=== PATIENT | male | born 1985 | race Caucasian/White ===

== ENCOUNTER 2017-04-20 16:40 | Emergency (ER) | payer OTHER ==
[~2017-04-20] VITALS: Ht 165.1 cm; Wt 119.4 kg
[~2017-04-20 16:40] MED LIST: OMEPRAZOLE40 M1 PO; PRILOSEC20 MG PO
[2017-04-20 17:51] LABS: HEMATOCRIT 41.3 % (38.0-50.0); HEMOGLOBIN 14.6 G/DL (12.5-16.6); MCH 31.7 PG (29.0-34.0); MCHC 35.4 G/DL (30.0-36.0); MCV 89.8 FL (86-99); PLATELET COUNT 323 K/uL (156-360); RBC DIS.WIDTH-CV 11.6 % (11.8-14.6); RBC DIS.WIDTH-SD 37.8 % (39-53); WHITE BLOOD COUNT 10.6 K/uL (4.1-10.2)
[2017-04-20 18:06] LABS: ALBUMIN 4.7 g/dL (3.2-4.8); CHLORIDE 100 mEq/L (99-109); POTASSIUM 3.9 mEq/L (3.7-5.4); SODIUM 138 mEq/L (136-147)
[2017-04-20 18:08] LABS: GLUCOSE 98 mg/dL (70-99); TOTAL PROTEIN 8.4 g/dL (6.4-8.3)
[2017-04-20 18:10] LABS: TOTAL BILIRUBIN 0.9 mg/dL (0.0-1.0)
[2017-04-20 18:12] LABS: ALKALINE PHOSPHATASE 74 IU/L (3-129); CREATININE 0.9 mg/dL (0.6-1.3); GFR ESTIMATE (CALCULATED) > 59 mL/min/ (58.99-99999)
[2017-04-20 18:13] LABS: UREA NITROGEN (BUN) 11 mg/dL (9-23)
[2017-04-20 18:14] LABS: AST (GOT) 20 IU/L (2-34)
[2017-04-20 18:15] LABS: ALT (GPT) 22 IU/L (3-49); LIPASE 19 U/L (1.0-51.0)
[2017-04-20 19:52] LABS: APPEARANCE CLEAR ((CLEAR)); BILIRUBIN NEGATIVE; BLOOD SMALL; COLOR YELLOW ((YELLOW)); GLUCOSE (STRIP) NEGATIVE; KETONES 20; LEUKOCYTES NEGATIVE; NITRITE NEGATIVE; PROTEIN (STRIP) 100; SPECIFIC GRAVITY 1.025 (1.000-1.030)
[2017-04-20 19:55] LABS: BACTERIA NONE SEEN /HPF; EPITHELIAL CELLS NONE SEEN /HPF; MUCUS 2+ /LPF; RED BLOOD CELLS 0-5 /HPF (0-5); UCUL ADDED? NO; WHITE BLOOD CELLS 0-5 /HPF (0-5)
[2017-04-20] MEDS ORDERED: ZOFRAN4 MG PO (20:45)
[2017-04-20] MEDS ORDERED: PERCOCET 5/31 TABLET PO (20:45)
[2017-04-20 22:18] VITALS: BP 147/105
== END 2017-04-20 22:20 | disposition home or self-care (01) ==
LOC: EME 16:40
PROVIDERS: Physician Assistant
DX: K85.90 Acute pancreatitis without necrosis or infection, unspecified (principal); K80.20 Calculus of gallbladder without cholecystitis without obstruction; R31.9 Hematuria, unspecified; Z87.891 Personal history of nicotine dependence
CPT/HCPCS: 74177; 80053; 81003; 83690; 85027; 99281; 99285; J2270; J2405; J3010

== ENCOUNTER 2017-04-27 09:54 | Day surgery (SDC) | payer OTHER ==
[~2017-04-27] VITALS: Ht 170.2 cm; Wt 117.0 kg
[~2017-04-27 09:54] MED LIST changes: +PERCOCET 5/31 TABLET PO; +ZOFRAN4 MG PO
[2017-04-27 10:46] VITALS: BP 147/98
[2017-04-27] MEDS ORDERED: OXYCODONE-ACET1 EACH PO (14:29)
[2017-04-27 16:25] VITALS: BP 119/79
[2017-04-27 17:15] VITALS: BP 133/75
[2017-04-27 18:15] VITALS: BP 137/85
== END 2017-04-27 18:25 | disposition home or self-care (01) ==
LOC: SDC 09:54
DX: K80.10 Calculus of gallbladder with chronic cholecystitis without obstruction (principal); K42.0 Umbilical hernia with obstruction, without gangrene; K66.0 Peritoneal adhesions (postprocedural) (postinfection); E66.01 Morbid (severe) obesity due to excess calories; Z68.41 Body mass index [BMI] 40.0-44.9, adult; Z87.891 Personal history of nicotine dependence
CPT/HCPCS: 88304; J0330; J1170; J1644; J2250; J2405; J2710; J2765; J3010; S0020; S0074